=== PATIENT | male | born 1990 | race African-American/Black ===

== ENCOUNTER 2021-03-02 09:11 | Emergency (ER) | payer MEDICAID, OTHER, SELFPAY ==
[2021-03-02] MEDS ORDERED: Ibuprofen 200 MG TAB ONE (10:12)
== END 2021-03-02 10:15 | disposition home or self-care (01) ==
LOC: CSHERS 09:11
DX: S83.92XA Sprain of unspecified site of left knee, initial encounter (principal); Y93.72 Activity, wrestling